=== PATIENT | male | born 1950 ===

== ENCOUNTER 2021-11-30 07:45 | Inpatient (IN) | payer OTHER ==
[~2021-11-30] VITALS: Ht 167.6 cm; Wt 74.8 kg
[2021-11-30] MEDS ORDERED: ATORVASTATIN CA10 MG PO (09:54)
[2021-11-30] MEDS ORDERED: METFORMIN HCL500 M3 PO (09:54)
[2021-11-30] MEDS ORDERED: HYDROCHLOROTH12.5 MG PO (09:54)
[2021-11-30] MEDS ORDERED: COZAAR50 MG PO (09:55)
[2021-12-06] MEDS ORDERED: PERCOCET 5-3251 EACH PO (14:51)
[2021-12-06] MEDS ORDERED: ELIQUIS2.5 MG PO (14:51)
[2021-12-06] MEDS ORDERED: CEFADROXIL500 MG PO (14:51)
== END 2021-12-06 19:41 | DRG 470 ==
LOC: SURH 12-04 06:31 → O/R 12-04 06:31 → SURH 12-04 07:00
PROVIDERS: ADMIT Orthopaedic Surgery; ATTEND Orthopaedic Surgery
PROC: 3E0F7SF Introduction of Other Gas into Respiratory Tract, Via Natural or Artificial Opening (ICD-10-PCS; 2021-12-04)
PROC: 0SRC0J9 Replacement of Right Knee Joint with Synthetic Substitute, Cemented, Open Approach (ICD-10-PCS; principal; 2021-12-04 07:00)
DX: M17.11 Unilateral primary osteoarthritis, right knee (principal); D62 Acute posthemorrhagic anemia; E78.00 Pure hypercholesterolemia, unspecified; I10 Essential (primary) hypertension; E11.9 Type 2 diabetes mellitus without complications; E66.3 Overweight; M41.80 Other forms of scoliosis, site unspecified; Z68.26 Body mass index [BMI] 26.0-26.9, adult; Z79.84 Long term (current) use of oral hypoglycemic drugs